=== PATIENT | female | born 1985 | race Caucasian/White ===

== ENCOUNTER → 2019-06-23 | Outpatient (CLI) | payer OTHER ==
[2019-06-23 14:16] LABS: BASO % 0.4 % (0.0-1.0); EOS # 0.1 10^3/uL (0.0-0.5); EOS % 1.5 % (0.0-3.0); HEMATOCRIT 41.6 % (36.0-47.0); HEMOGLOBIN 13.7 g/dl (12.0-15.5); LYMPH # 1.4 10^3/uL (1.5-5.0); MEAN CORPUSCULAR HEMOGLOBIN 32.2 pg (27.0-33.0); MEAN CORPUSCULAR HGB CONC 32.9 g/dl (32.0-36.5); MEAN CORPUSCULAR VOLUME 97.7 fl (80.0-96.0); MONO # 0.5 10^3/uL (0.0-0.8); MONO % 6.1 % (0.0-5.0); NEUTROPHILS # 6.4 10^3/uL (1.5-8.5); NEUTROPHILS % 75.5 % (36.0-66.0); PLATELET COUNT, AUTOMATED 325 10^3/uL (150-450); RED BLOOD COUNT 4.26 10^6/uL (4.00-5.40); WHITE BLOOD COUNT 8.5 10^3/uL (4.0-10.0)
[2019-06-23 14:18] LABS: FREE THYROXINE INDEX 3.2 % (1.3-4.8); T UPTAKE 26 % (30-39); THYROXINE (T4) 12.2 UG/DL (4.5-12.0)
[2019-06-23 14:31] LABS: RUBELLA IgG QUALITATIVE IMMUNE (IMMUNE)
[2019-06-23 15:00] LABS: HIV 1&2 SCREEN CENTAUR NEGATIVE (NEGATIVE)
[2019-06-24 11:12] LABS: CHLAMYDIA DNA AMPLIFICATION NEGATIVE (NEGATIVE); GC DNA AMPLIFICATION NEGATIVE (NEGATIVE)
== END ==
LOC: M SMT 10:37
PROVIDERS: ATTEND Advanced Practice Midwife
DX: Z3A.08 8 weeks gestation of pregnancy (principal); Z34.81 Encounter for supervision of other normal pregnancy, first trimester

== ENCOUNTER → 2019-07-23 | Outpatient (REF) | payer OTHER | LOC: M SFHCLERA 16:17 | PROVIDERS: ATTEND Nurse Practitioner Family | DX: J02.9 Acute pharyngitis, unspecified (principal) | CPT/HCPCS: 87070; 87077; 87880; G0463 ==

== ENCOUNTER → 2019-07-30 | Outpatient (REF) | payer OTHER | LOC: M LAB REF 07:24 | PROVIDERS: ATTEND Advanced Practice Midwife | DX: Z34.92 Encounter for supervision of normal pregnancy, unspecified, second trimester (principal) ==

== ENCOUNTER → 2019-07-30 | Outpatient (CLI) | payer OTHER ==
--- NOTE | 2019-07-30 10:42 | REP ---
OBSTETRIC SONOGRAPHY: HISTORY: Second trimester study. Supervision of for anatomy. FINDINGS: Scanning through the gravid uterus demonstrates a viable single intrauterine gestation in a cephalic lie. motion is observed and heart rate is recorded at 160 beats per minute. A posterior grade 0 placenta is seen without evidence of previa or abruption. Amniotic fluid is subjectively normal. Closed cervical length is 3.6 cm. No extrauterine abnormalities observed. No anomaly is seen. nose and lips are seen but facial profile is less than optimally seen today. In addition, four-chamber heart, left ventricular outflow tract view, and diaphragm are less than optimally seen. The following additional anatomic structures are identified today and felt to be unremarkable: cranium, choroid plexus, cavum, cerebellum and posterior fossa, lungs, right ventricular cardiac outflow tract view, left-sided stomach, abdominal wall cord insertion, three-vessel umbilical cord, kidneys and bladder, spine, upper and lower extremities. Biometry Chart: BPD 4.3 cm = 18 weeks 6 days HC 16.1 cm = 18 weeks 6 days AC e 13.2 cm = 18 weeks 5 days FL 3.0 cm = 19 weeks 2 days HL 2.8 cm = 18 weeks 6 days HC/AC ratio normal 1.22. Cephalic index normal 0.72. Estimated weight 266 grams, 0 pounds 9 ounces, 34th percentile for 19 weeks 2 days. IMPRESSION: Viable single intrauterine gestation at 18 weeks 6 days by today's composite sonographic criteria. PAUL by sonography December 25, 2019. Facial profile and four-chamber heart and left ventricular outflow tract views and diaphragm less than optimally seen today. Electronically Signed by Rich Martinez MD 07/30/2019 12:07 P
== END ==
LOC: M RAD 08:33
PROVIDERS: ATTEND Advanced Practice Midwife
DX: Z34.82 Encounter for supervision of other normal pregnancy, second trimester (principal); Z3A.18 18 weeks gestation of pregnancy

== ENCOUNTER → 2019-09-13 | Outpatient (CLI) | payer OTHER ==
--- NOTE | 2019-09-14 04:28 | REP ---
Clinical: Anatomical evaluation. Comparison: 07/30/2019 . Findings: Examination demonstrates a single live intrauterine in cephalic presentation. motion is identified by technologist. Placenta is noted posterior and grade I without evidence for placenta previa or abruption. Amniotic fluid volume is normal. Cervix measures 4.0 cm in length and appears closed. No evidence for nuchal cord. Gestational age by LMP 25 weeks 5 days with PAUL 12/22/2019 . Gestational age by current measurements 25 weeks 0 days with PAUL 12/27/2019 . FHR equals 146 beats per minute. Estimated weight 833 grams ( 40th percentile). Anatomical assessment demonstrates normal structures including cranium, choroid plexus, cavum, facial features, four-chamber heart/ventricular outflow tracts, diaphragm, stomach, cord insertion/three-vessel cord, and kidneys/bladder. Impression: Single live intrauterine in cephalic presentation demonstrating appropriate interval growth. 2. In conjunction with prior examination anatomical assessment is complete and normal.
== END ==
LOC: M WHC 09:02
PROVIDERS: ATTEND Obstetrics & Gynecology
DX: Z34.92 Encounter for supervision of normal pregnancy, unspecified, second trimester (principal)

== ENCOUNTER → 2019-09-24 | Outpatient (CLI) | payer OTHER ==
[2019-09-24 14:01] LABS: HEMATOCRIT 36.8 % (36.0-47.0); HEMOGLOBIN 12.3 g/dl (12.0-15.5); MEAN CORPUSCULAR HEMOGLOBIN 32.7 pg (27.0-33.0); MEAN CORPUSCULAR HGB CONC 33.4 g/dl (32.0-36.5); MEAN CORPUSCULAR VOLUME 97.9 fl (80.0-96.0); PLATELET COUNT, AUTOMATED 279 10^3/uL (150-450); RED BLOOD COUNT 3.76 10^6/uL (4.00-5.40); WHITE BLOOD COUNT 9.4 10^3/uL (4.0-10.0)
== END ==
LOC: M PLALAB 10:42
PROVIDERS: ATTEND Advanced Practice Midwife
DX: Z34.92 Encounter for supervision of normal pregnancy, unspecified, second trimester (principal)

== ENCOUNTER → 2019-11-30 | Outpatient (REF) | payer OTHER | LOC: M PLALAB 11:08 | PROVIDERS: ATTEND Advanced Practice Midwife | DX: Z34.83 Encounter for supervision of other normal pregnancy, third trimester (principal) ==

== ENCOUNTER 2019-12-16 07:39 | Inpatient (IN) | payer OTHER ==
[~2019-12-16] VITALS: Ht 175.3 cm; Wt 95.5 kg
[2019-12-16] VITALS (28 sets, daily range): BP systolic 108–146; BP diastolic 58–97
[2019-12-16] MEDS ORDERED: AMIT50TA PO (08:09)
[2019-12-16] MEDS ORDERED: PREN29TA4 PO (08:09)
[2019-12-16] MEDS ORDERED: PRENTAB9 PO (08:09)
[2019-12-16] MEDS: miSOPROStol 50 MCG 1/2 TAB (S0191) PO SCH ×2 (08:58→13:06)
--- NOTE | 2019-12-16 09:17 | HPEPDOC ---
Obstetrical History & Physical General Date of Admission December 16, 2019 at 07:39 History of Present Illness Denise is a 34-year-old at 39+1 weeks with an PAUL of 12/22/2019 based on first trimester ultrasound. She is presenting today for social induction of labor. She endorses occasional contractions, but denies any leakage of fluid or bloody discharge. She is feeling baby move. She initiated care at [facility] in the first trimester and has been compliant throughout. Medical history is complicated by Shanna-Danlos syndrome. Age: 34 : 3 Term: 2 Pre-term: 0 Abortions: 0 Livin Care Care: Good Care Dating Final EDC: December 22, 2019 Final EDC by: 1st trimester (US) Past Medical History Past Medical History Medical History Past obstetrical history: October 2016 she delivered a 9 pound female infant at 39 weeks via normal spontaneous vaginal delivery, no complications February 2018 she delivered an 8 lbs. 12 oz. female at 39 weeks via normal spontaneous vaginal delivery, no complications Past medical history: Significant for Shanna-Danlos syndrome and fibromyalgia Family History Significant Family History: No pertinent family hx Social History Marital Status: Family situation: Spouse/partner deployed (father just diagnosed with cancer) Psychosocial History: No pertinent psych hx * Smoker: non-smoker Alcohol: Denies Drugs: denies Imunizations Tdap status: current Allergies Coded Allergies: Sulfa (Sulfonamide Antibiotics) (Verified Allergy, Mild, 12/16/19) Medications Scheduled Amitriptyline HCl (Amitriptyline HCl) 50 Mg Tablet, 1 TAB PO QPM No.137/Iron/Folic Acd ( Vitamin Tablet) 1 Each Tablet, 1 TAB PO DAILY Physical Examination Physical Examination GENERAL: Alert and oriented times three. BREAST: . ABDOMEN: Gravid and non-tender to touch. FETUS: Is vertex (VTX) by sterile vaginal examination (SVE), fetus is vertex (VTX) by Arvin, confirmed with ultrasound. HEART RATE: Regular rate and rhythm. LUNGS: Clear to auscultation (CTA). EXTREMITIES: No edema. No clonus. Deep tendon reflexes (DTRs) +2. Laboratory Data 24H LABS Laboratory Tests 2 12/16/19 07:55: Serology Scanned Report Hepatitis B Testing Pertinent Laboratoy Data Blood Type: A+ RBC Antibody Screen: Negative HIV: Negative Hepatitis B: Negative Hepatitis C: Negative Rapid Plasma Reagin: Nonreactive Rubella: Immune Chlamydia/Gonorrhea: Negative Group B Streptococcus: Negative Glucose Tolerance Test: 66 Anatomy Ultrasound Placenta Location: Posterior Other Ultrasounds 07/30/2019: Viable single intrauterine gestation at 18 weeks 6 days by today's composite sonographic criteria. PAUL by sonography December 25, 2019. Facial profile and four-chamber heart and left ventricular outflow tract views and diaphragm less than optimally seen today. 09/14/2019: Single live intrauterine in cephalic presentation demonstrating appropriate interval growth. In conjunction with prior examination anatomical assessment is complete and normal Vaginal Examination Dilation: None Effacement: other Station: -3 Cervical Consistency: Soft Cervical Position: Posterior Presentation: Cephalic presentation Position: Vertex (occiput) Assessment Heart Rate (FHR): 140 Variability: Moderate Accelerations: Positive Decelerations: None Tocometer Contractions: No Assessment/Plan Assessment Denise is a 34-year-old (G) 3 para (P)2-0-0-2 at 39+1 weeks by first trimester ultrasound. Presents to Labor and Delivery (L&D) for social induction of labor. 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 Diet: Regular. Group B Streptococcus (GBS) negative. Labs and intravenous (IV) per unit protocol. Counseled on Pitocin and induction of labor (IOL). Starting with Cytotec Anticipate normal spontaneous delivery (). C-S as appropriate. Labor and Delivery Counseling Patient was counseled on the risks of induction of labor, including but not limited to: The risks for surgical vaginal delivery, use of blood products, and if appropriate. She is in agreement with the plan and wishes to proceed. GME ATTESTATION GME ATTESTATION My faculty preceptor for this patient encounter was physically present during the encounter and was fully available. All aspects of the patient interview, examination, medical decision making process, and medical care plan development were reviewed and approved by the faculty preceptor. The faculty preceptor is aware and concurs with the plan as stated in the body of this note and will attest to such by his/her cosignature. CINTIA GOLDBERG D.O. December 16, 2019 09:17
[2019-12-16 09:21] LABS: HEMATOCRIT 37.8 % (36.0-47.0); MEAN CORPUSCULAR HEMOGLOBIN 32.6 pg (27.0-33.0); MEAN CORPUSCULAR HGB CONC 34.4 g/dl (32.0-36.5); MEAN CORPUSCULAR VOLUME 94.7 fl (80.0-96.0); PLATELET COUNT, AUTOMATED 235 10^3/uL (150-450); RED BLOOD COUNT 3.99 10^6/uL (4.00-5.40); WHITE BLOOD COUNT 10.6 10^3/uL (4.0-10.0)
[2019-12-16] MEDS: CALCIUM CARBONATE 500 MG CHEW U/D PO PRN ×2 (10:52→17:24)
[2019-12-16] MEDS ORDERED: LR 1,000 ML IV SCH (17:14)
[2019-12-16] MEDS ORDERED: OXYTOCIN DRIP 30 UNITS in IV 1 EA IV SCH (17:15)
[2019-12-16] MEDS ORDERED: OXYTOCIN 30 UNITS IN 0.9% NaCl 500ML IV BAG (J2590) As Ordered ONE (17:18)
[2019-12-16] MEDS ORDERED: FENTANYL 2MCG/ML ROPIVACAINE 0.2% IN 0.9% NACL 100ML IVBAG As Ordered ONE (20:35)
--- NOTE | 2019-12-16 20:35 | IPNPDOC ---
Text Note Date of Service The patient was seen on 12/16/19. NOTE Subjective: Feeling more contractions, would like epidural. Objective: Abdomen: gravid SVE: 580/-2 FHR: 155 bpm, moderate variability, accels, no decels, Cat I tracing Assessment: Denise is a 34-year-old at 39+1 weeks with an PAUL of 12/22/2019 based on first trimester ultrasound. She is presenting 12/16/19 for social induction of labor. Plan: Anesthesia consult for epidural Continue pitocin status reassuring Dr. So made aware Anticipate Vaginal Delivery VS,Fishbone, I+O VS, Fishbone, I+O Laboratory Tests 12/16/19 08:51 Vital Signs Date Time Temp Pulse Resp B/P (MAP) Pulse Ox O2 Delivery O2 Flow Rate FiO2 12/16/19 19:08 98.6 101 18 130/97 (108) 12/16/19 17:42 Room Air GME ATTESTATION GME ATTESTATION My faculty preceptor for this patient encounter was physically present during the encounter and was fully available. All aspects of the patient interview, examination, medical decision making process, and medical care plan development were reviewed and approved by the faculty preceptor. The faculty preceptor is aware and concurs with the plan as stated in the body of this note and will attest to such by his/her cosignature. CINTIA GOLDBERG D.O. December 16, 2019 20:35
[2019-12-16] MEDS ORDERED: DIBUCAINE 1% OINTMENT 30GM TOP PRN (22:15)
[2019-12-16] MEDS ORDERED: IBUPROFEN 600 MG TAB PO PRN (22:15)
[2019-12-16] MEDS ORDERED: OXYTOCIN DRIP 30 UNITS in IV 1 EA IV ONE (22:15)
[2019-12-16] MEDS ORDERED: MEASLES,MUMPS,RUBELLA VACCINE INJ (MMR-II) (90707) SC SCH (22:15)
[2019-12-16] MEDS ORDERED: DOCUSATE SODIUM 100 MG CAP PO PRN (22:15)
[2019-12-16] MEDS ORDERED: LIDOCAINE 1% MDV 20ML VIAL INFIL ONE (22:15)
[2019-12-16] MEDS ORDERED: ACETAMINOPHEN 500 MG TAB PO PRN (22:15)
[2019-12-16] MEDS ORDERED: METHYLERGONOVINE MALEATE 0.2 MG TAB PO PRN (22:15)
[2019-12-16] MEDS ORDERED: ACETAMINOPHEN TAB 650MG DOSE (2X325MG) PO PRN (22:15)
[2019-12-16] MEDS ORDERED: RHOGAM 300 MCG (1500 IU) INJ (J2790) IM SCH (22:15)
[2019-12-16] MEDS ORDERED: ONDANSETRON 4MG/2ML VIAL IV PRN ×2 (22:15→22:45)
[2019-12-16] MEDS ORDERED: ePHEDrine SULFATE 25 MG/5 ML(5MG/ML) SYRINGE IV PRN (22:45)
[2019-12-16] MEDS ORDERED: FENTANYL/ROPIVACAINE/NACL BAG 100 ML EPIDURAL SCH (22:45)
[2019-12-16] MEDS ORDERED: EPIDURAL/PCA KEYS XX PRN (22:45)
[2019-12-16] MEDS ORDERED: LACTATED RINGER'S 1000 ML IV PRN (22:45)
[2019-12-16] MEDS ORDERED: diphenhydrAMINE 50MG/ML VIAL (J1200) IV PRN (22:45)
[2019-12-16] MEDS ORDERED: EPIDURAL COMMENT XX SCH (22:45)
[2019-12-16] MEDS ORDERED: REFRIGERATOR IV KEYS XX PRN (22:45)
[2019-12-16] MEDS ORDERED: NALOXONE INJ 0.4MG/1ML VIAL (J2310 PER 1MG) IV PRN (22:45)
[2019-12-16] MEDS ORDERED: miSOPROStol 200 MCG TAB (S0191) PR ONE (23:00)
[2019-12-17 00:30] VITALS: BP 125/58
[2019-12-17] MEDS: IBUPROFEN 800 MG TAB PO PRN ×2 (02:48→16:31)
[2019-12-17 05:08] VITALS: BP 119/77
[2019-12-17] MEDS: PRENATAL VITAMINS CHEWABLE TABLET PO SCH (07:56)
[2019-12-17 18:03] VITALS: BP 127/63
[2019-12-18] MEDS: IBUPROFEN 800 MG TAB PO PRN (02:23)
[2019-12-18 06:18] VITALS: BP 123/71
[2019-12-18] MEDS: PRENATAL VITAMINS CHEWABLE TABLET PO SCH (09:00)
--- NOTE | 2019-12-18 20:37 | DN ---
DATE: 12/16/2019 PREDELIVERY DIAGNOSIS: Term , labor induction. POSTDELIVERY INDUCTION: Delivered. PROCEDURE: Spontaneous vaginal delivery. MARKET PRESIDENT: Dr. Fidel So ORGANIC PREPARATION TECHNICIAN: Dr. Elizabeth Quiroz D.O. ANESTHESIA: Epidural. ESTIMATED BLOOD LOSS: 400 mL. FINDINGS: A 7-pound 12-ounce female infant, scores 9 and 9. DELIVERY SUMMARY: After 4-minute second stage, the patient spontaneously delivered at 7-pound 12-ounce female , scores 9 and 9, under epidural anesthesia. Nuchal cord times one was reduced. Shoulders delivered with ease. The infant was handed to the mother. The cord was doubly clamped and cut. After 30 minutes, the placenta delivered spontaneously. There were membranes trailing from her vagina. Membranes were teased out very gently. Upon manual exploration of the uterus, more membranes were removed from the uterine fundus. Small fragments of membranes appeared to be densely adherent to the uterus and could not be removed in spite of our best efforts. A first-degree perineal laceration was repaired under local anesthesia with 3-0 Rapide in the usual fashion. The patient received 800 mcg of Methergine per rectum. Sponge and needle counts were correct. The issue of retained fragments of membranes was discussed with the patient. Due to the fact that she was not having any significant bleeding, the decision was made to leave them and allow for natural expulsion over time.
== END 2019-12-18 10:30 | disposition home or self-care (01) | DRG 807 ==
LOC: M LDI 07:39 → M OBS 12-17 00:19
PROVIDERS: ADMIT Specialist; ATTEND Specialist
PROC: 10D17Z9 Manual Extraction of Products of Conception, Retained, Via Natural or Artificial Opening (ICD-10-PCS; principal; 2019-12-16)
PROC: 3E0P7GC Introduction of Other Therapeutic Substance into Female Reproductive, Via Natural or Artificial Opening (ICD-10-PCS; 2019-12-16)
PROC: 10E0XZZ Delivery of Products of Conception, External Approach (ICD-10-PCS; 2019-12-16)
DX: O69.81X0 Labor and delivery complicated by cord around neck, without compression, not applicable or unspecified (principal); Z37.0 Single live birth; Z3A.39 39 weeks gestation of pregnancy; Z88.2 Allergy status to sulfonamides; O70.0 First degree perineal laceration during delivery; O73.1 Retained portions of placenta and membranes, without hemorrhage; M79.7 Fibromyalgia; O99.89 Other specified diseases and conditions complicating pregnancy, childbirth and the puerperium; O26.893 Other specified pregnancy related conditions, third trimester

== ENCOUNTER → 2020-10-13 | Outpatient (CLI) | payer SELFPAY ==
[~2020-10-13] MED LIST: AMIT50TA PO; PREN29TA4 PO; PRENTAB9 PO
== END ==
LOC: M LABSMTC 11:59
PROVIDERS: ATTEND Pediatrics
DX: Z11.52 Encounter for screening for COVID-19 (principal)

== ENCOUNTER → 2020-10-26 | Outpatient (CLI) | payer SELFPAY | LOC: M LABSMTC 09:55 | PROVIDERS: ATTEND Pediatrics | DX: Z11.52 Encounter for screening for COVID-19 (principal) ==